=== PATIENT | female | born 1965 | race African-American/Black ===

== ENCOUNTER 2022-05-28 04:44 | Day surgery (SDC) | payer OTHER ==
[2022-05-27 13:19] VITALS: BMI 31.6
[2022-05-28] MEDS ORDERED: GENTAMICIN SO4 80 MG/2 ML VIAL ONE ×2 (10:49→10:53)
[2022-05-28] MEDS ORDERED: MIDAZOLAM HCL 2 MG/2 ML SINGLE DOSE VIAL ONE (10:51)
[2022-05-28] MEDS ORDERED: GENTAMICIN 80MG PREMIX BAG IVPB ONE (11:01)
[2022-05-28] MEDS ORDERED: ceFAZolin SODIUM 1 GM VIAL IVPB ONE (11:01)
[2022-05-28] MEDS ORDERED: PROPOFOL 20 ML ONE (11:07)
[2022-05-28] MEDS ORDERED: oxyCODONE HCL 5 MG TABLET PO PRN (11:30)
[2022-05-28] MEDS ORDERED: DEXTROSE 5%-0.45% SALINE 1,000 ML IV SCH (11:30)
[2022-05-28 13:32] VITALS: RESP 20
[2022-05-28 17:01] VITALS: BP 125/55; PULSE 82; TEMP 98.2
== END 2022-05-28 14:30 | disposition home or self-care (01) ==
LOC: JASU-SURG 04:44
PROVIDERS: ATTEND Urology
PROC: 0TC68ZZ Extirpation of Matter from Right Ureter, Via Natural or Artificial Opening Endoscopic (ICD-10-PCS; principal; 2022-05-28 10:30)
PROC: 0T768DZ Dilation of Right Ureter with Intraluminal Device, Via Natural or Artificial Opening Endoscopic (ICD-10-PCS; 2022-05-28 10:30)
DX: N20.1 Calculus of ureter (principal)
CPT/HCPCS: 36415; 76000-TC-FY; 82360; 88300-TC; 93005; 93010; 94760